=== PATIENT | female | born 1970 | race Caucasian/White ===

== ENCOUNTER → 2016-07-28 | Outpatient (CLI) | payer OTHER | LOC: FIMAGING 15:03 | DX: Z12.31 Encounter for screening mammogram for malignant neoplasm of breast (principal) | CPT/HCPCS: G0202 ==

== ENCOUNTER → 2017-07-14 | Outpatient (CLI) | payer OTHER | LOC: FIMAGING 08:05 | PROVIDERS: ATTEND Orthopaedic Surgery Sports Medicine | DX: M84.362A Stress fracture, left tibia, initial encounter for fracture (principal) ==

== ENCOUNTER → 2017-08-15 | Outpatient (CLI) | payer OTHER | LOC: FIMAGING 10:32 | PROVIDERS: ATTEND Internal Medicine | DX: Z13.820 Encounter for screening for osteoporosis (principal); M81.0 Age-related osteoporosis without current pathological fracture; S82.142A Displaced bicondylar fracture of left tibia, initial encounter for closed fracture; M84.362A Stress fracture, left tibia, initial encounter for fracture ==

== ENCOUNTER → 2017-09-01 | Outpatient (CLI) | payer OTHER | LOC: FIMAGING 13:06 | PROVIDERS: ATTEND Internal Medicine | DX: Z12.31 Encounter for screening mammogram for malignant neoplasm of breast (principal) ==

== ENCOUNTER → 2018-09-09 | Outpatient (CLI) | payer OTHER | LOC: FIMAGING 13:36 ==